=== PATIENT | male | born 1965 | race Caucasian/White ===

== ENCOUNTER 2017-02-20 14:24 | Emergency (ER) | payer BC ==
--- NOTE | ~2017-02-20 | ER ---
PATIENT'S NAME: ANISH NAJERA [facility] AGE: 51 Y [address] ROOM: [place] [address] LOCATION: [facility] ADMIT DATE: 02/20/2017 ER/Outpatient Report DISCHARGE DATE: 02/20/2017 FAMILY PHYSICIAN: Marcela Gilliland MD ATTENDING PHYSICIAN: Cary Barbosa HISTORY OF PRESENT ILLNESS: The patient is a 51-year-old male, here with chief complaint of abdominal pain. This is something that has been going on for several months now, started back in October, but has been worsening over the past several months and got to the point today that he was having several episodes of nausea without vomiting and feeling really worried that "something really bad is going on." The patient has been seen by several different providers for the similar symptoms. He has undergone an EGD, which showed a hiatal hernia of unknown size as we were not able to obtain those records, and then a colonoscopy, where he had some polyps removed, but returned benign. He also had lab work including several chemistry panels, all returning normal, several CBC's returning normal, BETSY returning within normal limits. On 02/17 in [place], [place], at his primary care physician, TSH was 3.06 and T4 was 1.18. The patient was seen by Dr. Powell on 02/18 for a second opinion on his abdominal pain and acid reflux, and TSH and T4 were obtained again. TSH was 3.06 and T4 was 1.18. Medical record was further reviewed, and discovered that the patient is on omeprazole, takes that once daily and takes Zantac at night. He is on Zofran for nausea. He states that this does not control his symptoms, and he still has episodes particularly it will "wake him up in the middle of the night" with what he calls acid tongue, and then he will start to feel nauseous and then develop the abdominal pain. The abdominal pain he described as located in the left upper quadrant, epigastric at times, and it is sharp in nature. He denies any diarrhea. He denies constipation, denies hematochezia. Denies any urinary symptoms. Denies chest pain, shortness of breath, headache, vision change, lower extremity swelling, denies any rashes. After the patient was evaluated by Dr. Powell earlier this week, the patient was started on venlafaxine for an anxiety disorder and instructed to continue to take his omeprazole and Zantac daily. Lifestyle modifications were also described to the patient. PAST MEDICAL HISTORY: Includes hiatal hernia and GERD. He also had C5-C6 fusion in the past as well as EGD x2 and colonoscopy as previously stated. He also had vasectomy. SOCIAL HISTORY: The patient denies any smoking. Denies illicit drug use and states he quit alcohol use when he was diagnosed with acid reflux back in October. ALLERGIES: PATIENT'S NAME: ANISH NAJERA [facility] AGE: 51 Y [address] ROOM: [place] [address] LOCATION: ED ADMIT DATE: 02/20/2017 ER/Outpatient Report DISCHARGE DATE: 02/20/2017 FAMILY PHYSICIAN: Marcela Gilliland MD ATTENDING PHYSICIAN: Cary Barbosa THE PATIENT HAS NO KNOWN MEDICAL ALLERGIES. MEDICATIONS: As stated previously. REVIEW OF SYSTEMS: A complete and comprehensive review of systems was completed and is negative except as noted in the HPI above. PHYSICAL EXAMINATION: GENERAL: The patient is in no acute distress. Alert and oriented x4. VITAL SIGNS: The patient's height 5 feet 7 inches, weight 67.7 kg, blood pressure 125/78, pulse 75, respiratory rate 20, temperature 97.7 tympanic membrane, SPO2 96% on room air. Pain level was 7/10. CHEST: Clear to auscultation bilaterally. CARDIOVASCULAR: Regular rate and rhythm. No murmur, rubs, or gallops. Pulses 2+ throughout. ABDOMEN: Normal upon inspection. Soft, nontender to palpation. Bowel sounds within normal limits. HEENT: Normocephalic, atraumatic. Eyes: PERRLA. EOMI. Mucous membranes are moist. No posterior oropharynx edema or erythema and no obvious dental caries. No lymphadenopathy. No palpable thyroid. SKIN: Warm, dry, and intact and no lower extremity edema and no rashes. The patient appears well nourished and hydrated. PSYCH: The patient is anxious. LABORATORY DATA AND X-RAYS: CBC was repeated today, was within normal limits, and a CMP was also completed today within normal limits. No further imaging was completed today. Medical review was completed in Dr. Powell's and primary care physician's records, and those results were noted in the HPI above. IMPRESSION: 1. Gastroesophageal reflux disease. 2. Hiatal hernia. 3. Anxiety. EMERGENCY DEPARTMENT COURSE: The patient had labs obtained and reviewed. Medical record was also reviewed with the patient, and no obvious abnormalities were found. Extensive counseling was performed with the patient regarding hiatal hernia and symptoms of anxiety, which are likely exacerbating his symptoms of GERD. The patient did not receive any medications or IV fluids, and vital signs remained stable. Pain resolved by the time he left the ER without any pain medication, and the only symptom he continued to have was little bit of acid taste in the back of PATIENT'S NAME: ANISH NAJERA [facility] AGE: 51 Y [address] ROOM: [place] [address] LOCATION: [facility] ADMIT DATE: 02/20/2017 ER/Outpatient Report DISCHARGE DATE: 02/20/2017 FAMILY PHYSICIAN: Marcela Gilliland MD ATTENDING PHYSICIAN: Cary Barbosa his mouth. Lifestyle modifications including avoiding caffeine, citrus, tomato, peppermint, eating large meals, lying down within 3 to 4 hours of eating meal were all again discussed with the patient. Recommended the patient try to follow up with Dr. Powell in 2 weeks rather than in 4 weeks, and consider discussing with his primary care physician on further management of his hiatal hernia and his GERD symptoms. Recommended that the patient follow up with his primary care provider in 3 to 5 days. The patient was discharged in good condition. DELFINA SMITH MED STUDENT, RESIDENT FOR MD [place] [place]/modl /[id number] d: 02/20/17 2315 t: 02/25/17 0648, OUTPATIENT REPORT
--- NOTE | ~2017-02-20 | ER ---
PATIENT'S NAME: ANISH NAJERA [facility] AGE: 51 Y [address] ROOM: [place] [address] LOCATION: [facility] ADMIT DATE: 02/20/2017 ER/Outpatient Report DISCHARGE DATE: 02/20/2017 FAMILY PHYSICIAN: Marcela Gilliland MD ATTENDING PHYSICIAN: Cary Mendiola Time of Arrival: 1424 hours. Time Seen: 1450 hours. IDENTIFICATION: The patient is a 51-year-old male who was evaluated by Dr. Anais Pacheco, third year resident. Please refer to her dictation. I did confirm the history and physical exam findings with her, reviewed her plan of care, and visited with the patient and his as well as reviewed his old records that were present from [facility], and agree with her impression and plan of gastroesophageal reflux disease, hiatal hernia, and anxiety. Continue current cares and follow up with Dr. Powell in 2 weeks rather than in 4 weeks. Follow up sooner if any problems or concerns. The patient and his understand and agree, and all questions were answered, and Dr. Pacheco spent a large amount of time with reassuring and going over all of the results with them. CARY MENDIOLA MD CAR/modl /[id number] d: 02/21/174 t: 02/21/17 08, OUTPATIENT REPORT
[2017-02-20 15:45] LABS: BASOPHIL # 0.1 K/uL (0.0-0.2); BASOPHIL % 0.8 %; EOSINOPHIL # 0.2 K/uL (0.0-0.5); EOSINOPHIL % 1.9 %; HEMATOCRIT 43.9 % (37.0-53.0); IMMATURE GRANULOCYTE % 0.5 %; LYMPHOCYTE % 22.8 %; MCH 29.2 pg (27.0-34.0); MCHC 34.2 gm/dL (32.0-36.5); MCV 85.6 fl (83.0-98.0); MONOCYTE # 0.9 K/uL (0.0-1.0); MONOCYTE % 9.7 %; MPV 9.6 fl (9.4-12.4); NEUTROPHIL # (ANC) 5.6 K/uL (1.4-9.0); NEUTROPHIL % 64.3 %; NRBC % 0 /100WBC (0-0.00); PLATELET COUNT 259 K/uL (150-450); RBC 5.13 M/uL (4.00-6.00); RDW-CV 12.9 % (11.9-14.6); WBC 8.7 K/uL (4.0-11.0)
[2017-02-20 16:00] LABS: ALBUMIN 3.9 gm/dL (3.5-5.0); ALK PHOS 51 IU/L (33-138); ALT 28 IU/L (12-78); ANION GAP 9.8 (10.0-19.0); AST 17 IU/L (10-40); BLOOD UREA NITROGEN 14 mg/dL (6-24); CALCIUM 8.9 mg/dL (8.5-10.5); CHLORIDE 107 mMol/L (96-110); CO2 27 mMol/L (22-32); CREATININE 1.1 mg/dL (0.6-1.3); ESTIMATED GFR (MDRD EQUATION) > 60; POTASSIUM 3.8 mMol/L (3.7-5.1); SODIUM 140 mMol/L (135-145); TOTAL BILIRUBIN 0.5 mg/dL (0.0-1.5)
== END 2017-02-20 16:37 | disposition disaster alternative care site (69) ==
LOC: GMED 14:24
PROVIDERS: Family Medicine
DX: K21.9 Gastro-esophageal reflux disease without esophagitis (principal); K44.9 Diaphragmatic hernia without obstruction or gangrene; F41.9 Anxiety disorder, unspecified; Z98.1 Arthrodesis status

== ENCOUNTER → 2017-02-25 | Outpatient (CLI) | payer BC | END | disposition disaster alternative care site (69) | LOC: GRAD 12:32 | DX: R10.11 Right upper quadrant pain (principal); R10.13 Epigastric pain; R11.0 Nausea | CPT/HCPCS: A9537 ==